=== PATIENT | female | born 1955 | race Caucasian/White ===

== ENCOUNTER 2017-06-15 08:21 | Outpatient (CLI) | payer OTHER | END 2017-06-15 08:22 | disposition home or self-care (01) | LOC: BICMAMMO 08:21 | PROVIDERS: ATTEND Internal Medicine Hematology & Oncology | DX: N63.20 Unspecified lump in the left breast, unspecified quadrant (principal); M85.80 Other specified disorders of bone density and structure, unspecified site; M85.89 Other specified disorders of bone density and structure, multiple sites | CPT/HCPCS: 77066; 77080; G0279 ==

== ENCOUNTER 2018-06-19 13:11 | Outpatient (CLI) | payer OTHER ==
--- NOTE | 2018-06-19 14:03 | BD ---
BONE DENSITOMETRY USING DEXA: Date: 06/19/18 HISTORY: Postmenopausal screening for osteoporosis. FINDINGS: Lumbar Spine: BMD (g/cm2) L1 0.807 T-Score: -1.7 Z-Score: -0.1 L2 0.855 T-Score: -1.6 Z-Score: 0.2 L3 0.924 T-Score: -1.5 Z-Score: 0.4 L4 0.959 T-Score: -0.9 Z-Score: 0.9 L1-L4 0.894 T-Score: -1.4 Z-Score: 0.4 Femoral Neck: 0.665 T-Score: -1.7 Z-Score: -0.2 Total Femur: 0.879 T-Score: -0.5 Z-Score: 0.7 There has been interval reduction of 2.4% in the bone mineral density of the lumbar spine and reducti on of 1.2% in the bone mineral density of the proximal femur since 10/15/13. IMPRESSION: Osteopenia. POS: [facility]
--- NOTE | 2018-06-19 14:08 | MMO ---
Bilateral MAMMO Bilat Diag [facility]. CLINICAL HISTORY: Patient is 62 years old and is seen for diagnostic exam. The patient has no family history of breast cancer. The patient has a history of malignant (generic) in the left breast in 2016 and Ultrasound Guided Core Biopsy procedure revealed invasive carcinoma. in the left breast in February,. The patient has a history of left Excisional Biopsy in 2016 - malignant. VIEWS: The views performed were: bilateral craniocaudal with tomosynthesis; bilateral mediolateral oblique with tomosynthesis; and bilateral mediolateral. FILMS COMPARED: The present examination has been compared to prior imaging studies performed at 02/08/2015, 02/19/2015 and 06/15/2017, and at [facility] on 04/03/2008, 04/28/2009 and 10/15/2013. MAMMOGRAM FINDINGS: There are scattered fibroglandular densities. Finding 1: There is a post-surgical scar seen in the left breast. Finding 2: There are benign appearing calcifications seen in both breasts. There are no suspicious masses, suspicious calcifications, or new areas of architectural distortion. IMPRESSION: THERE IS NO MAMMOGRAPHIC EVIDENCE OF MALIGNANCY. A ROUTINE FOLLOW-UP MAMMOGRAM IN 1 YEAR IS RECOMMENDED. THE RESULTS OF THIS EXAM WERE SENT TO THE PATIENT. ACR BI-RADS Category 2 - Benign finding MAMMOGRAPHY NOTE: 1. A negative mammogram report should not delay a biopsy if a dominant of clinically suspicious mass is present. 2. Approximately 10% to 15% of breast cancers are not detected by mammography. 3. Adenosis and dense breasts may obscure an underlying neoplasm.
== END 2018-06-19 13:12 | disposition home or self-care (01) ==
LOC: BICMAMMO 13:11
PROVIDERS: ATTEND Internal Medicine Hematology & Oncology
DX: Z08 Encounter for follow-up examination after completed treatment for malignant neoplasm (principal); M85.89 Other specified disorders of bone density and structure, multiple sites; Z85.3 Personal history of malignant neoplasm of breast
CPT/HCPCS: 77066; 77080; G0279

== ENCOUNTER 2020-02-06 08:36 | Outpatient (CLI) | payer MEDICARE, OTHER ==
--- NOTE | 2020-02-06 09:27 | ULT ---
EXAM: Abdominal ultrasound complete: HISTORY: COMPARISON: 11/27/2002 FINDINGS: Heterogeneous liver echogenicity evidence for nonspecific hepatic parenchymal process. Status post cholecystectomy. The common bile duct is 0.6 cm Visualized pancreas: Unremarkable. Visualized abdominal aorta: Unremarkable. Visualized IVC: Unremarkable. Visualized spleen: Unremarkable. Visualized kidneys: No evidence for hydronephrosis or solid or cystic mass. No mass, abscess, adenopathy, or abnormal fluid collection or other acute process. IMPRESSION: Coarse increased liver echogenicity evidence for nonspecific hepatic parenchymal process. Status post cholecystectomy.
== END 2020-02-06 08:37 | disposition home or self-care (01) ==
LOC: BICULT 08:36
PROVIDERS: ATTEND Family Medicine
DX: R10.9 Unspecified abdominal pain (principal); R93.2 Abnormal findings on diagnostic imaging of liver and biliary tract; Z90.49 Acquired absence of other specified parts of digestive tract
CPT/HCPCS: 93975

== ENCOUNTER 2020-02-19 08:09 | Outpatient (CLI) | payer MEDICARE ==
--- NOTE | 2020-02-19 08:50 | MMO ---
Bilateral MAMMO Bilat Diag [facility]. CLINICAL HISTORY: Patient is 64 years old and is seen for diagnostic exam. The patient has no family history of breast cancer. The patient has a history of malignant (generic) in the left breast in 2016 and Ultrasound guided core biopsy procedure revealed invasive carcinoma. in the left breast in February,. The patient has a history of left Excisional Biopsy in 2016 - malignant. VIEWS: The views performed were: bilateral craniocaudal with tomosynthesis; bilateral mediolateral oblique with tomosynthesis; and bilateral mediolateral with tomosynthesis. FILMS COMPARED: The present examination has been compared to prior imaging studies performed at [facility] on 06/15/2017 and 06/19/2018. This study has been interpreted with the assistance of computer-aided detection. MAMMOGRAM FINDINGS: There are scattered fibroglandular densities. Finding 1: There are stable benign appearing calcifications seen in both breasts. There are also vascular calcifications. Finding 2: There are stable post operative changes seen in the left breast. There are no suspicious masses, suspicious calcifications, or new areas of architectural distortion. IMPRESSION: THERE IS NO MAMMOGRAPHIC EVIDENCE OF MALIGNANCY. A ROUTINE FOLLOW-UP MAMMOGRAM IN 1 YEAR IS RECOMMENDED. THE RESULTS OF THIS EXAM WERE SENT TO THE PATIENT. ACR BI-RADS Category 2 - Benign finding MAMMOGRAPHY NOTE: 1. A negative mammogram report should not delay a biopsy if a dominant of clinically suspicious mass is present. 2. Approximately 10% to 15% of breast cancers are not detected by mammography. 3. Adenosis and dense breasts may obscure an underlying neoplasm. Reported by: COSTA GONZALEZ MD Electonically Signed: [id number]
--- NOTE | 2020-02-19 08:59 | BD ---
BONE DENSITOMETRY USING DEXA: Date: 02/19/2020 HISTORY: Postmenopausal screening for osteoporosis. FINDINGS: Lumbar Spine: BMD (g/cm2) L1 0.837 T-Score: -1.4 Z-Score: 0.3 L2 0.860 T-Score: -1.5 Z-Score: 0.3 L3 0.885 T-Score: -1.8 Z-Score: 0.1 L4 0.849 T-Score: -1.9 Z-Score: 0.1 L1-L4 0.858 T-Score: -1.7 Z-Score: 0.1 Femoral Neck: 0.543 T-Score: -2.8 Z-Score: -1.2 Total Femur: 0.753 T-Score: -1.6 Z-Score: -0.2 There has been interval reduction of 4% in the bone mineral density of the lumbar spine and a reducti on of 14.3% in the bone mineral density of the proximal femur since 06/19/2018. IMPRESSION: Osteoporosis. POS: AH
== END 2020-02-19 08:10 | disposition home or self-care (01) ==
LOC: BICMAMMO 08:09
PROVIDERS: ATTEND Internal Medicine Hematology & Oncology
DX: Z13.820 Encounter for screening for osteoporosis (principal); Z08 Encounter for follow-up examination after completed treatment for malignant neoplasm; Z78.0 Asymptomatic menopausal state; M81.0 Age-related osteoporosis without current pathological fracture; Z85.3 Personal history of malignant neoplasm of breast
CPT/HCPCS: 77066; 77080; G0279

== ENCOUNTER 2021-02-08 07:42 | Outpatient (CLI) | payer MEDICARE | END 2021-02-08 07:43 | disposition home or self-care (01) | LOC: TBSIIMAG 07:42 | PROVIDERS: ATTEND Family Medicine | DX: M47.22 Other spondylosis with radiculopathy, cervical region (principal); M43.02 Spondylolysis, cervical region; M50.122 Cervical disc disorder at C5-C6 level with radiculopathy; M43.5X2 Other recurrent vertebral dislocation, cervical region | CPT/HCPCS: 72141 ==

== ENCOUNTER 2021-08-26 08:29 | Outpatient (CLI) | payer MEDICARE | END 2021-08-26 08:30 | disposition home or self-care (01) | LOC: BICMAMMO 08:29 | PROVIDERS: ATTEND Internal Medicine Hematology & Oncology | DX: Z12.31 Encounter for screening mammogram for malignant neoplasm of breast (principal); Z13.820 Encounter for screening for osteoporosis; Z85.3 Personal history of malignant neoplasm of breast; M85.89 Other specified disorders of bone density and structure, multiple sites | CPT/HCPCS: 77063; 77067; 77080 ==

== ENCOUNTER 2023-07-25 11:30 | Outpatient (CLI) | payer MEDICARE ==
[~2023-07-25 11:30] MED LIST: Magnevist 469MG/ML 20 ML VIAL ONE
== END 2023-07-25 11:31 | disposition home or self-care (01) ==
LOC: PET 11:30
PROVIDERS: ATTEND Internal Medicine Hematology & Oncology
DX: C50.412 Malignant neoplasm of upper-outer quadrant of left female breast (principal); J98.59 Other diseases of mediastinum, not elsewhere classified; C79.72 Secondary malignant neoplasm of left adrenal gland; C77.0 Secondary and unspecified malignant neoplasm of lymph nodes of head, face and neck; C79.51 Secondary malignant neoplasm of bone; J98.6 Disorders of diaphragm
CPT/HCPCS: 70553; 78815; A9552; A9579

== ENCOUNTER 2024-03-24 08:00 | Outpatient (CLI) | payer MEDICARE | END 2024-03-24 08:01 | disposition home or self-care (01) | LOC: PET 08:00 | PROVIDERS: ATTEND Internal Medicine Hematology & Oncology | DX: C50.412 Malignant neoplasm of upper-outer quadrant of left female breast (principal); C79.51 Secondary malignant neoplasm of bone; R59.0 Localized enlarged lymph nodes | CPT/HCPCS: 78815; A9552; 36415; 80053 ==

== ENCOUNTER 2024-11-13 08:45 | Outpatient (CLI) | payer MEDICARE, OTHER | END 2024-11-13 08:46 | disposition home or self-care (01) | LOC: PET 08:45 | PROVIDERS: ATTEND Internal Medicine Hematology & Oncology | DX: C50.412 Malignant neoplasm of upper-outer quadrant of left female breast (principal); C79.51 Secondary malignant neoplasm of bone; D70.8 Other neutropenia | CPT/HCPCS: 78815; A9552 ==